=== PATIENT | female | born 1950 | race Caucasian/White ===

== ENCOUNTER 2018-01-22 19:26 | Emergency (ER) | payer OTHER ==
[~2018-01-22] VITALS: Ht 172.7 cm; Wt 73.4 kg
[~2018-01-22 19:26] MED LIST: ATORVASTATIN CA10 MG PO; CALCIUM AND VIT D PO; CENTRUM SILVER1 EAC3 PO; KRILL OIL 1,001 EACH PO; LIPITOR10 MG PO; LIPITOR5 MG PO; TOPROL XL25 MG PO; ZOLOFT20 MG/ML PO; ZOLOFT50 MG PO; ZYRTEC1 MG/1 ML PO
[2018-01-22] MEDS ORDERED: TRAMADOL HCL50 MG PO (20:42)
[2018-01-22 21:08] VITALS: BP 122/58
== END 2018-01-22 21:09 | disposition home or self-care (01) ==
LOC: RME 19:26 → EME 19:26 → RME 21:09
DX: S93.401A Sprain of unspecified ligament of right ankle, initial encounter (principal); W19.XXXA Unspecified fall, initial encounter
CPT/HCPCS: 73610; 99281; 99284